=== PATIENT | female | born 1935 | race Caucasian/White ===

== ENCOUNTER 2017-01-31 13:53 | Outpatient (CLI) | payer MEDICARE, BC ==
--- NOTE | 2017-01-31 20:01 | PET ---
NUCLEAR MEDICINE FDG PET CT: (Positron Emission Tomography) DATE: 01/31/17 HISTORY: 81-year-old female with colon cancer, initial staging. COMPARISON: None. TECHNIQUE: IV injection F-18 Fluorodeoxyglucose (FDG) dose: 12.2 mCi PET and attenuation-correction CT performed from skull base to proximal thighs. FINDINGS: SUV (standard uptake value) numbers given are maximum SUV's: There are no abnormal hypermetabolic lesions in the liver or anywhere else in the abdominal cavity. T here is increased uptake in the soft tissues around the suprapubic catheter, which is expected if the catheter placement is relatively recent. Increased uptake in the anus, with SUV of 6.8 is another no nspecific, common finding. Otherwise, there are no suspicious hypermetabolic foci within the pelvic c avity. There are bilateral pedicle screws with vertical interlocking rods at multiple levels from the mid to lower thoracic spine through the lower lumbar spine. There is a dorsal column stimulator ente ring the spinal canal at the upper sacrum, with generator overlying the soft tissues superficial to t he left anterior lower quadrant abdominal wall. IMPRESSION: No evidence of metastatic disease. PAUL oLpez POS: [facility]ANE
== END 2017-01-31 13:54 | disposition home or self-care (01) ==
LOC: PET 13:53
PROVIDERS: ATTEND Internal Medicine Hematology & Oncology
DX: C18.9 Malignant neoplasm of colon, unspecified (principal)
CPT/HCPCS: 78815; A9552